=== PATIENT | female | born 1960 | race Caucasian/White ===

== ENCOUNTER 2016-10-17 11:44 | Inpatient (IN) | payer MEDICAID ==
[~2016-10-17] VITALS: Ht 167.6 cm; Wt 112.3 kg
[~2016-10-17 11:44] MED LIST: BACITRACIN OINT TOPICAL ONE; FENTANYL 100 MCG/2 ML AMP IV ONE; GLYCOPYRROLATE 0.2 MG/ML VIAL IV ONE; LIDOCAINE 2% SYR 5 ML IV ONE; NEOSTIGMINE 10 MG/10 ML VIAL IV ONE; PROPOFOL 20 ML PER ML IV ONE; ROCURONIUM 50 MG VIAL IV ONE
[2016-10-17] MEDS ORDERED: DILAUDID 1 MG/ML AMP ONE ×2 (12:23→15:17)
[2016-10-17] MEDS ORDERED: BISACODYL EC 5 MG TAB PO PRN (17:25)
[2016-10-17] MEDS ORDERED: SALINE FLUSH 10 ML FLUSH PRN (17:25)
[2016-10-17] MEDS ORDERED: BISACODYL 10 MG SUPP RECTAL PRN (17:25)
[2016-10-17] MEDS ORDERED: ONDANSETRON 4 MG VIAL IV PRN (17:25)
[2016-10-17] MEDS ORDERED: MAG HYDROX 30 ML UDC PO PRN (17:25)
[2016-10-17] MEDS ORDERED: ALU/MAG/SIM 30 ML UDC PO PRN (17:25)
[2016-10-17 17:28] VITALS: BP_SYST 107; RESP 16; TEMP 98.1
[2016-10-17 17:43] VITALS: RESP 20
[2016-10-17 18:00] VITALS: Ht 167.6 cm; Wt 112.3 kg
[2016-10-17] MEDS: MORPHINE 2 MG/ML SYR IV PRN (18:13)
[2016-10-17 19:41] VITALS: BP_SYST 111; RESP 16; TEMP 98.2
[2016-10-17] MEDS: SALINE FLUSH 10 ML FLUSH SCH (21:12)
[2016-10-17 23:18] VITALS: BP_SYST 139; RESP 16; TEMP 98.3
[2016-10-18] MEDS: MORPHINE 2 MG/ML SYR IV PRN ×2 (01:31→08:10)
[2016-10-18 03:43] VITALS: BP_SYST 124; RESP 16; TEMP 98.3
[2016-10-18] MEDS ORDERED: SODIUM CHLORIDE 0.9% FLUSH BAG 500 ML IV SCH (06:00)
[2016-10-18 07:54] VITALS: BP_SYST 142; RESP 18; TEMP 98.4
[2016-10-18] MEDS: SALINE FLUSH 10 ML FLUSH SCH ×2 (08:11→20:43)
[2016-10-18] MEDS ORDERED: CEFAZOLIN 2,000 MG in SODIUM CHLORIDE 0.9% 100 ML IV ONE (09:15)
[2016-10-18 12:23] VITALS: BP_SYST 128; RESP 18; TEMP 99
[2016-10-18 15:38] VITALS: BP_SYST 121; RESP 20; TEMP 99.3
[2016-10-18 19:17] VITALS: BP_SYST 139; RESP 18; TEMP 99.4
[2016-10-18] MEDS ORDERED: DIVALPROEX DR 500 MG TAB PO ONE (21:20)
[2016-10-18] MEDS ORDERED: TRAZODONE 50 MG TAB PO ONE (21:20)
[2016-10-18] MEDS ORDERED: lamoTRIgine 100 MG TAB PO ONE (21:20)
[2016-10-18] MEDS ORDERED: SERTRALINE 100 MG TAB PO ONE (21:20)
[2016-10-18] MEDS ORDERED: PHENYTOIN 100 MG CAP PO ONE (21:20)
[2016-10-18 23:12] VITALS: BP_SYST 151; RESP 18; TEMP 98.6
[2016-10-19] VITALS (19 sets, daily range): BP systolic 114–159; RESP 16–20; TEMP 98–102.7
[2016-10-19] MEDS ORDERED: OXYCODONE 5 MG TAB PO PRN (07:55)
[2016-10-19] MEDS ORDERED: MORPHINE 4 MG/ML SYR IV PRN (07:55)
[2016-10-19] MEDS ORDERED: MORPHINE 2 MG/ML SYR IV PRN (07:55)
[2016-10-19] MEDS ORDERED: ONDANSETRON 4 MG VIAL IV PRN (07:55)
[2016-10-19] MEDS: SALINE FLUSH 10 ML FLUSH SCH ×2 (08:00→21:01)
[2016-10-19] MEDS: ENOXAPARIN 40 MG/0.4 ML SYR SUBQ SCH (09:00)
[2016-10-19] MEDS ORDERED: SALINE FLUSH 10 ML FLUSH PRN (09:20)
[2016-10-19] MEDS: MEPERIDINE 25 MG/ML IV PRN ×2 (09:53→10:14)
[2016-10-19] MEDS: DILAUDID 1 MG/ML AMP IV PRN ×2 (09:56→10:12)
[2016-10-19] MEDS: MORPHINE 2 MG/ML SYR IV PRN ×2 (11:19→16:04)
[2016-10-19] MEDS: DIVALPROEX DR 500 MG TAB PO SCH ×2 (12:35→21:00)
[2016-10-19] MEDS: LEVOTHYROXINE 0.05 MG TAB PO SCH (12:43)
[2016-10-19] MEDS: ONDANSETRON 4 MG VIAL IV PRN ×2 (12:51→21:00)
[2016-10-19] MEDS: SODIUM CHLORIDE 0.9% FLUSH BAG 500 ML IV SCH (12:51)
[2016-10-19] MEDS: CEFAZOLIN 2,000 MG in SODIUM CHLORIDE 0.9% 100 ML IV SCH ×2 (12:51→18:10)
[2016-10-19] MEDS: lamoTRIgine 100 MG TAB PO SCH (13:29)
[2016-10-19] MEDS: TERBUTALINE SULF 2.5 MG TAB PO SCH ×2 (16:01→21:00)
[2016-10-19] MEDS: ACETAMINOPHEN 325 MG TAB PO PRN (19:00)
[2016-10-19] MEDS: LEVOFLOXACIN 500 MG/100 ML 100 ML IV SCH (19:01)
[2016-10-19] MEDS: PRIMIDONE 50 MG TAB PO SCH (20:59)
[2016-10-19] MEDS: PHENYTOIN 100 MG CAP PO SCH (21:00)
[2016-10-19] MEDS ORDERED: DOCUSATE SOD 100 MG CAP PO SCH (21:00)
[2016-10-19] MEDS: TRAZODONE 50 MG TAB PO SCH (21:00)
[2016-10-19] MEDS: CYPROHEPTADINE 4 MG TAB PO SCH (21:00)
[2016-10-20] MEDS: CEFAZOLIN 2,000 MG in SODIUM CHLORIDE 0.9% 100 ML IV SCH ×2 (00:03→06:11)
[2016-10-20 03:04] VITALS: BP_SYST 132; RESP 18; TEMP 99
[2016-10-20] MEDS: LEVOTHYROXINE 0.05 MG TAB PO SCH (06:08)
[2016-10-20] MEDS: SODIUM CHLORIDE 0.9% FLUSH BAG 500 ML IV SCH (06:11)
[2016-10-20 07:25] VITALS: BP_SYST 129; RESP 20; TEMP 99.4
[2016-10-20] MEDS: ENOXAPARIN 40 MG/0.4 ML SYR SUBQ SCH (07:53)
[2016-10-20] MEDS: CYPROHEPTADINE 4 MG TAB PO SCH ×2 (07:54→20:47)
[2016-10-20] MEDS: LEVOFLOXACIN 500 MG/100 ML 100 ML IV SCH (07:54)
[2016-10-20] MEDS: TERBUTALINE SULF 2.5 MG TAB PO SCH ×3 (07:55→20:46)
[2016-10-20] MEDS: DIVALPROEX DR 500 MG TAB PO SCH ×2 (07:55→20:46)
[2016-10-20] MEDS: DOCUSATE SOD 100 MG CAP PO SCH (07:56)
[2016-10-20] MEDS: PRIMIDONE 50 MG TAB PO SCH ×2 (07:56→20:46)
[2016-10-20] MEDS: MAG HYDROX 30 ML UDC PO SCH (07:56)
[2016-10-20] MEDS: lamoTRIgine 100 MG TAB PO SCH (07:56)
[2016-10-20] MEDS: ONDANSETRON 4 MG VIAL IV PRN (07:57)
[2016-10-20] MEDS: SALINE FLUSH 10 ML FLUSH SCH ×2 (07:58→20:47)
[2016-10-20 11:57] VITALS: BP_SYST 138; RESP 18; TEMP 99.6
[2016-10-20 15:03] VITALS: BP_SYST 134; RESP 20; TEMP 99.6
[2016-10-20 19:33] VITALS: BP_SYST 118; RESP 18; TEMP 99.4
[2016-10-20] MEDS: PHENYTOIN 100 MG CAP PO SCH (20:46)
[2016-10-20] MEDS: TRAZODONE 50 MG TAB PO SCH (20:47)
[2016-10-20] MEDS: MORPHINE 2 MG/ML SYR IV PRN (20:47)
[2016-10-20 23:17] VITALS: BP_SYST 144; RESP 18; TEMP 101.2
[2016-10-21] VITALS (10 sets, daily range): BP systolic 112–151; RESP 18; TEMP 100–102.6
[2016-10-21] MEDS: MORPHINE 2 MG/ML SYR IV PRN ×2 (02:05→21:02)
[2016-10-21] MEDS: LEVOTHYROXINE 0.05 MG TAB PO SCH (06:47)
[2016-10-21] MEDS: MAG HYDROX 30 ML UDC PO SCH (08:15)
[2016-10-21] MEDS: TERBUTALINE SULF 2.5 MG TAB PO SCH ×3 (08:16→20:02)
[2016-10-21] MEDS: CYPROHEPTADINE 4 MG TAB PO SCH ×2 (08:16→20:03)
[2016-10-21] MEDS: LEVOFLOXACIN 500 MG/100 ML 100 ML IV SCH (08:16)
[2016-10-21] MEDS: DOCUSATE SOD 100 MG CAP PO SCH ×2 (08:16→20:03)
[2016-10-21] MEDS: lamoTRIgine 100 MG TAB PO SCH (08:16)
[2016-10-21] MEDS: DIVALPROEX DR 500 MG TAB PO SCH ×2 (08:17→20:03)
[2016-10-21] MEDS: PRIMIDONE 50 MG TAB PO SCH ×2 (08:17→20:02)
[2016-10-21] MEDS: ENOXAPARIN 40 MG/0.4 ML SYR SUBQ SCH (08:17)
[2016-10-21] MEDS: SALINE FLUSH 10 ML FLUSH SCH ×2 (08:18→20:04)
[2016-10-21] MEDS: ACETAMINOPHEN 325 MG TAB PO PRN ×2 (08:26→20:03)
[2016-10-21] MEDS ORDERED: PHARMACY TO DOSE ZOSYN IV SCH (11:30)
[2016-10-21] MEDS ORDERED: PHARMACY TO DOSE VANCOMYCIN IV SCH (11:30)
[2016-10-21] MEDS ORDERED: BISACODYL 10 MG SUPP RECTAL ONE (11:55)
[2016-10-21] MEDS: PIPERACIL/TAZO 3.375GM/50ML 50 ML IV SCH ×3 (12:24→23:00)
[2016-10-21] MEDS: VANCOMYCIN 1,500 MG in SODIUM CHLORIDE 0.9% 250 ML IV SCH (13:34)
[2016-10-21] MEDS: POLYETHYLENE GLYCOL 17 GM PACKET PO SCH (20:01)
[2016-10-21] MEDS: PHENYTOIN 100 MG CAP PO SCH (20:02)
[2016-10-21] MEDS: OXYCODONE 5 MG TAB PO PRN ×2 (20:02→23:55)
[2016-10-21] MEDS: TRAZODONE 50 MG TAB PO SCH (20:03)
[2016-10-21] MEDS: ONDANSETRON 4 MG VIAL IV PRN (22:11)
[2016-10-22] VITALS (7 sets, daily range): BP systolic 117–137; RESP 18–20; TEMP 98.8–102.8
[2016-10-22] MEDS ORDERED: PROMETHAZINE 12.5 MG TAB PO PRN (00:20)
[2016-10-22] MEDS: VANCOMYCIN 1,500 MG in SODIUM CHLORIDE 0.9% 250 ML IV SCH ×2 (00:20→13:26)
[2016-10-22] MEDS: ACETAMINOPHEN 325 MG TAB PO PRN ×3 (02:45→17:44)
[2016-10-22] MEDS: PROMETHAZINE 25 MG/ML VIAL IM/IV PRN (02:45)
[2016-10-22] MEDS: OXYCODONE 5 MG TAB PO PRN (03:30)
[2016-10-22] MEDS: PIPERACIL/TAZO 3.375GM/50ML 50 ML IV SCH ×4 (05:30→23:24)
[2016-10-22] MEDS: MORPHINE 2 MG/ML SYR IV PRN (06:15)
[2016-10-22] MEDS: LEVOTHYROXINE 0.05 MG TAB PO SCH (06:25)
[2016-10-22] MEDS: ONDANSETRON 4 MG VIAL IV PRN (07:54)
[2016-10-22] MEDS: SODIUM CHLORIDE 0.9% FLUSH BAG 500 ML IV SCH (07:59)
[2016-10-22] MEDS: SALINE FLUSH 10 ML FLUSH SCH ×2 (08:20→19:18)
[2016-10-22] MEDS: DIVALPROEX DR 500 MG TAB PO SCH ×2 (08:22→20:19)
[2016-10-22] MEDS: DOCUSATE SOD 100 MG CAP PO SCH ×2 (08:22→20:14)
[2016-10-22] MEDS: TERBUTALINE SULF 2.5 MG TAB PO SCH ×3 (08:22→20:15)
[2016-10-22] MEDS: CYPROHEPTADINE 4 MG TAB PO SCH ×2 (08:23→20:14)
[2016-10-22] MEDS: PRIMIDONE 50 MG TAB PO SCH ×2 (08:23→20:14)
[2016-10-22] MEDS: lamoTRIgine 100 MG TAB PO SCH (08:23)
[2016-10-22] MEDS: MAG HYDROX 30 ML UDC PO SCH (08:26)
[2016-10-22] MEDS: ENOXAPARIN 40 MG/0.4 ML SYR SUBQ SCH (08:26)
[2016-10-22] MEDS: NEB-ATROVENT INH SCH ×2 (14:20→18:12)
[2016-10-22] MEDS ORDERED: NEB-XOPENEX 0.63 MG/3 ML INH PRN (14:20)
[2016-10-22] MEDS ORDERED: MISSING DOSE XX ONE (14:20)
[2016-10-22] MEDS: AZITHROMYCIN 500 MG in SODIUM CHLORIDE 0.9% 250 ML IV SCH (14:30)
[2016-10-22] MEDS: GUAIFENESIN ER 600 MG TABCR PO SCH ×2 (14:30→20:19)
[2016-10-22] MEDS: SODIUM CHLORIDE 0.9% 1,000 ML IV SCH (14:30)
[2016-10-22] MEDS: POLYETHYLENE GLYCOL 17 GM PACKET PO SCH (20:12)
[2016-10-22] MEDS: PHENYTOIN 100 MG CAP PO SCH (20:13)
[2016-10-22] MEDS: TRAZODONE 50 MG TAB PO SCH (20:18)
[2016-10-23] VITALS (7 sets, daily range): BP systolic 124–147; RESP 16–18; TEMP 98.5–101.1
[2016-10-23] MEDS: VANCOMYCIN 1,500 MG in SODIUM CHLORIDE 0.9% 250 ML IV SCH ×3 (00:52→21:10)
[2016-10-23] MEDS: ACETAMINOPHEN 325 MG TAB PO PRN (03:02)
[2016-10-23] MEDS: SODIUM CHLORIDE 0.9% FLUSH BAG 500 ML IV SCH (05:07)
[2016-10-23] MEDS: PIPERACIL/TAZO 3.375GM/50ML 50 ML IV SCH ×4 (05:53→23:57)
[2016-10-23] MEDS: SODIUM CHLORIDE 0.9% 1,000 ML IV SCH ×2 (05:58→21:10)
[2016-10-23] MEDS: LEVOTHYROXINE 0.05 MG TAB PO SCH (06:03)
[2016-10-23] MEDS: NEB-ATROVENT INH SCH ×3 (07:16→20:23)
[2016-10-23] MEDS: SALINE FLUSH 10 ML FLUSH SCH ×2 (07:30→19:22)
[2016-10-23] MEDS: AZITHROMYCIN 500 MG in SODIUM CHLORIDE 0.9% 250 ML IV SCH (08:06)
[2016-10-23] MEDS: DOCUSATE SOD 100 MG CAP PO SCH ×2 (08:07→21:15)
[2016-10-23] MEDS: ENOXAPARIN 40 MG/0.4 ML SYR SUBQ SCH (08:07)
[2016-10-23] MEDS: CYPROHEPTADINE 4 MG TAB PO SCH ×2 (08:08→21:12)
[2016-10-23] MEDS: PRIMIDONE 50 MG TAB PO SCH ×2 (08:08→21:13)
[2016-10-23] MEDS: DIVALPROEX DR 500 MG TAB PO SCH ×2 (08:08→21:14)
[2016-10-23] MEDS: GUAIFENESIN ER 600 MG TABCR PO SCH ×2 (08:09→21:11)
[2016-10-23] MEDS: TERBUTALINE SULF 2.5 MG TAB PO SCH ×3 (08:09→21:15)
[2016-10-23] MEDS: lamoTRIgine 100 MG TAB PO SCH (08:09)
[2016-10-23] MEDS: MAG HYDROX 30 ML UDC PO SCH (08:11)
[2016-10-23] MEDS: ONDANSETRON 4 MG VIAL IV PRN (16:32)
[2016-10-23] MEDS: METRONIDAZOLE 500 MG TAB PO SCH ×2 (16:59→21:15)
[2016-10-23] MEDS: POLYETHYLENE GLYCOL 17 GM PACKET PO SCH (21:00)
[2016-10-23] MEDS: PHENYTOIN 100 MG CAP PO SCH (21:11)
[2016-10-23] MEDS: TRAZODONE 50 MG TAB PO SCH (21:15)
[2016-10-24 02:30] VITALS: BP_SYST 118; RESP 16; TEMP 99
[2016-10-24] MEDS: VANCOMYCIN 1,500 MG in SODIUM CHLORIDE 0.9% 250 ML IV SCH (04:53)
[2016-10-24] MEDS: SODIUM CHLORIDE 0.9% FLUSH BAG 500 ML IV SCH (05:45)
[2016-10-24] MEDS: LEVOTHYROXINE 0.05 MG TAB PO SCH (06:38)
[2016-10-24] MEDS: PIPERACIL/TAZO 3.375GM/50ML 50 ML IV SCH ×4 (06:39→23:57)
[2016-10-24] MEDS: NEB-ATROVENT INH SCH ×3 (07:02→19:47)
[2016-10-24] MEDS ORDERED: MISSING DOSE XX ONE (07:25)
[2016-10-24] MEDS: PROMETHAZINE 25 MG/ML VIAL IM/IV PRN (07:53)
[2016-10-24 08:30] VITALS: BP_SYST 156; RESP 22; TEMP 98
[2016-10-24] MEDS: AZITHROMYCIN 500 MG in SODIUM CHLORIDE 0.9% 250 ML IV SCH (08:54)
[2016-10-24] MEDS: PRIMIDONE 50 MG TAB PO SCH ×2 (08:55→21:27)
[2016-10-24] MEDS: METRONIDAZOLE 500 MG TAB PO SCH ×3 (08:55→21:26)
[2016-10-24] MEDS: ENOXAPARIN 40 MG/0.4 ML SYR SUBQ SCH (08:55)
[2016-10-24] MEDS: lamoTRIgine 100 MG TAB PO SCH (08:55)
[2016-10-24] MEDS: CYPROHEPTADINE 4 MG TAB PO SCH ×2 (08:56→21:26)
[2016-10-24] MEDS: TERBUTALINE SULF 2.5 MG TAB PO SCH ×3 (08:56→21:25)
[2016-10-24] MEDS: GUAIFENESIN ER 600 MG TABCR PO SCH ×2 (08:56→21:26)
[2016-10-24] MEDS: DIVALPROEX DR 500 MG TAB PO SCH ×2 (08:56→21:26)
[2016-10-24] MEDS: SALINE FLUSH 10 ML FLUSH SCH ×2 (08:57→21:27)
[2016-10-24] MEDS: MAG HYDROX 30 ML UDC PO SCH (09:00)
[2016-10-24] MEDS: DOCUSATE SOD 100 MG CAP PO SCH ×2 (09:00→21:25)
[2016-10-24] MEDS ORDERED: Furosemide 100 MG/10 ML VIAL IV ONE (10:40)
[2016-10-24 13:30] VITALS: BP_SYST 120; RESP 20; TEMP 98.7
[2016-10-24 16:42] VITALS: RESP 20; TEMP 100.1
[2016-10-24 19:00] VITALS: BP_SYST 132; RESP 20; TEMP 98.6
[2016-10-24] MEDS: TRAZODONE 50 MG TAB PO SCH (21:25)
[2016-10-24] MEDS: PHENYTOIN 100 MG CAP PO SCH (21:25)
[2016-10-24] MEDS: POLYETHYLENE GLYCOL 17 GM PACKET PO SCH (21:27)
[2016-10-24 23:30] VITALS: BP_SYST 122; RESP 20; TEMP 97.8
[2016-10-25 03:34] VITALS: BP_SYST 132; RESP 18; TEMP 97.3
[2016-10-25] MEDS: PIPERACIL/TAZO 3.375GM/50ML 50 ML IV SCH ×4 (06:21→23:43)
[2016-10-25] MEDS: SODIUM CHLORIDE 0.9% FLUSH BAG 500 ML IV SCH (06:21)
[2016-10-25] MEDS: LEVOTHYROXINE 0.05 MG TAB PO SCH (06:22)
[2016-10-25] MEDS: NEB-ATROVENT INH SCH ×3 (06:53→18:44)
[2016-10-25 08:01] VITALS: BP_SYST 118; RESP 18; TEMP 99.5
[2016-10-25] MEDS: MAG HYDROX 30 ML UDC PO SCH (09:00)
[2016-10-25] MEDS ORDERED: Furosemide 40 MG/4 ML VIAL IV SCH (09:00)
[2016-10-25] MEDS: DIVALPROEX DR 500 MG TAB PO SCH ×2 (09:11→21:15)
[2016-10-25] MEDS: CYPROHEPTADINE 4 MG TAB PO SCH ×2 (09:11→21:14)
[2016-10-25] MEDS: DOCUSATE SOD 100 MG CAP PO SCH ×2 (09:11→21:15)
[2016-10-25] MEDS: TERBUTALINE SULF 2.5 MG TAB PO SCH ×3 (09:11→21:13)
[2016-10-25] MEDS: SALINE FLUSH 10 ML FLUSH SCH ×2 (09:11→21:13)
[2016-10-25] MEDS: lamoTRIgine 100 MG TAB PO SCH (09:11)
[2016-10-25] MEDS: METRONIDAZOLE 500 MG TAB PO SCH ×3 (09:12→21:15)
[2016-10-25] MEDS: GUAIFENESIN ER 600 MG TABCR PO SCH ×2 (09:12→21:14)
[2016-10-25] MEDS: PRIMIDONE 50 MG TAB PO SCH ×2 (09:12→21:14)
[2016-10-25] MEDS: ENOXAPARIN 40 MG/0.4 ML SYR SUBQ SCH (09:14)
[2016-10-25] MEDS: AZITHROMYCIN 500 MG in SODIUM CHLORIDE 0.9% 250 ML IV SCH (09:14)
[2016-10-25 11:58] VITALS: BP_SYST 122; RESP 20; TEMP 99.6
[2016-10-25] MEDS: KCL CR 10 MEQ CAP PO SCH (12:33)
[2016-10-25 16:44] VITALS: RESP 18; TEMP 100.2
[2016-10-25] MEDS: Furosemide 40 MG/4 ML VIAL IV SCH (17:02)
[2016-10-25 19:00] VITALS: BP_SYST 122; RESP 22; TEMP 100.3
[2016-10-25] MEDS: TRAZODONE 50 MG TAB PO SCH (21:13)
[2016-10-25] MEDS: PHENYTOIN 100 MG CAP PO SCH (21:15)
[2016-10-25] MEDS: POLYETHYLENE GLYCOL 17 GM PACKET PO SCH (21:15)
[2016-10-25 23:25] VITALS: BP_SYST 132; RESP 18; TEMP 100.7
[2016-10-26 03:46] VITALS: BP_SYST 128; RESP 18; TEMP 97.7
[2016-10-26] MEDS: NEB-ATROVENT INH SCH ×3 (06:41→19:20)
[2016-10-26] MEDS: SODIUM CHLORIDE 0.9% FLUSH BAG 500 ML IV SCH (06:42)
[2016-10-26] MEDS: LEVOTHYROXINE 0.05 MG TAB PO SCH (06:42)
[2016-10-26] MEDS: PIPERACIL/TAZO 3.375GM/50ML 50 ML IV SCH ×3 (06:42→17:28)
[2016-10-26 07:51] VITALS: BP_SYST 128; RESP 18; TEMP 98.7
[2016-10-26] MEDS ORDERED: MISSING DOSE XX ONE (08:45)
[2016-10-26] MEDS: SALINE FLUSH 10 ML FLUSH SCH ×2 (09:24→20:53)
[2016-10-26] MEDS: Furosemide 40 MG/4 ML VIAL IV SCH ×2 (09:24→16:26)
[2016-10-26] MEDS: ENOXAPARIN 40 MG/0.4 ML SYR SUBQ SCH (09:25)
[2016-10-26] MEDS: MAG HYDROX 30 ML UDC PO SCH (09:25)
[2016-10-26] MEDS: DIVALPROEX DR 500 MG TAB PO SCH ×2 (09:26→20:51)
[2016-10-26] MEDS: KCL CR 10 MEQ CAP PO SCH (09:26)
[2016-10-26] MEDS: METRONIDAZOLE 500 MG TAB PO SCH ×3 (09:26→20:52)
[2016-10-26] MEDS: TERBUTALINE SULF 2.5 MG TAB PO SCH ×3 (09:26→20:53)
[2016-10-26] MEDS: lamoTRIgine 100 MG TAB PO SCH (09:26)
[2016-10-26] MEDS: CYPROHEPTADINE 4 MG TAB PO SCH ×2 (09:26→20:53)
[2016-10-26] MEDS: DOCUSATE SOD 100 MG CAP PO SCH ×2 (09:26→20:45)
[2016-10-26] MEDS: PRIMIDONE 50 MG TAB PO SCH ×2 (09:27→20:52)
[2016-10-26] MEDS: GUAIFENESIN ER 600 MG TABCR PO SCH ×2 (09:27→20:52)
[2016-10-26 11:50] VITALS: BP_SYST 126; RESP 20; TEMP 98
[2016-10-26 17:09] VITALS: BP_SYST 126; RESP 18; TEMP 98.6
[2016-10-26 19:56] VITALS: BP_SYST 126; RESP 18; TEMP 98.8
[2016-10-26] MEDS: POLYETHYLENE GLYCOL 17 GM PACKET PO SCH (20:45)
[2016-10-26] MEDS: PHENYTOIN 100 MG CAP PO SCH (20:52)
[2016-10-26] MEDS: TRAZODONE 50 MG TAB PO SCH (20:53)
[2016-10-27 00:46] VITALS: BP_SYST 130; RESP 18; TEMP 99.3
[2016-10-27] MEDS: PIPERACIL/TAZO 3.375GM/50ML 50 ML IV SCH ×4 (00:56→18:02)
[2016-10-27 04:52] VITALS: BP_SYST 124; RESP 18; TEMP 98.2
[2016-10-27] MEDS: SODIUM CHLORIDE 0.9% FLUSH BAG 500 ML IV SCH (05:58)
[2016-10-27] MEDS: LEVOTHYROXINE 0.05 MG TAB PO SCH (05:59)
[2016-10-27] MEDS: NEB-ATROVENT INH SCH ×3 (06:59→18:20)
[2016-10-27 07:42] VITALS: BP_SYST 128; RESP 18; TEMP 98.5
[2016-10-27] MEDS: Furosemide 40 MG/4 ML VIAL IV SCH ×2 (08:35→16:44)
[2016-10-27] MEDS: CYPROHEPTADINE 4 MG TAB PO SCH ×2 (08:35→21:18)
[2016-10-27] MEDS: lamoTRIgine 100 MG TAB PO SCH (08:35)
[2016-10-27] MEDS: SALINE FLUSH 10 ML FLUSH SCH ×2 (08:35→21:15)
[2016-10-27] MEDS: METRONIDAZOLE 500 MG TAB PO SCH ×3 (08:35→21:16)
[2016-10-27] MEDS: TERBUTALINE SULF 2.5 MG TAB PO SCH ×3 (08:35→21:17)
[2016-10-27] MEDS: DIVALPROEX DR 500 MG TAB PO SCH ×2 (08:35→21:17)
[2016-10-27] MEDS: GUAIFENESIN ER 600 MG TABCR PO SCH ×2 (08:36→21:17)
[2016-10-27] MEDS: PRIMIDONE 50 MG TAB PO SCH ×2 (08:36→21:17)
[2016-10-27] MEDS: KCL CR 10 MEQ CAP PO SCH (08:37)
[2016-10-27] MEDS: ENOXAPARIN 40 MG/0.4 ML SYR SUBQ SCH (08:37)
[2016-10-27] MEDS: MAG HYDROX 30 ML UDC PO SCH (09:00)
[2016-10-27] MEDS: DOCUSATE SOD 100 MG CAP PO SCH ×2 (09:00→20:45)
[2016-10-27 11:43] VITALS: BP_SYST 110; RESP 18; TEMP 98.5
[2016-10-27 14:55] VITALS: BP_SYST 120; RESP 18; TEMP 98.7
[2016-10-27 20:17] VITALS: BP_SYST 122; RESP 18; TEMP 97.9
[2016-10-27] MEDS: POLYETHYLENE GLYCOL 17 GM PACKET PO SCH (20:45)
[2016-10-27] MEDS: ONDANSETRON 4 MG VIAL IV PRN (21:16)
[2016-10-27] MEDS: PHENYTOIN 100 MG CAP PO SCH (21:18)
[2016-10-27] MEDS: TRAZODONE 50 MG TAB PO SCH (21:18)
[2016-10-28] MEDS: PIPERACIL/TAZO 3.375GM/50ML 50 ML IV SCH ×2 (00:12→06:38)
[2016-10-28 00:14] VITALS: BP_SYST 118; RESP 18; TEMP 98.3
[2016-10-28] MEDS: LEVOTHYROXINE 0.05 MG TAB PO SCH (06:38)
[2016-10-28] MEDS: SODIUM CHLORIDE 0.9% FLUSH BAG 500 ML IV SCH (06:38)
[2016-10-28] MEDS: DOCUSATE SOD 100 MG CAP PO SCH ×2 (07:56→20:55)
[2016-10-28] MEDS: NEB-ATROVENT INH SCH ×3 (07:58→19:40)
[2016-10-28] MEDS: MAG HYDROX 30 ML UDC PO SCH (08:01)
[2016-10-28] MEDS: Furosemide 40 MG/4 ML VIAL IV SCH ×2 (08:12→16:40)
[2016-10-28] MEDS: ENOXAPARIN 40 MG/0.4 ML SYR SUBQ SCH (08:12)
[2016-10-28] MEDS: SALINE FLUSH 10 ML FLUSH SCH ×2 (08:12→21:10)
[2016-10-28] MEDS: GUAIFENESIN ER 600 MG TABCR PO SCH ×2 (08:13→21:09)
[2016-10-28] MEDS: METRONIDAZOLE 500 MG TAB PO SCH ×3 (08:14→21:10)
[2016-10-28] MEDS: CYPROHEPTADINE 4 MG TAB PO SCH ×2 (08:14→21:10)
[2016-10-28] MEDS: lamoTRIgine 100 MG TAB PO SCH (08:14)
[2016-10-28] MEDS: KCL CR 10 MEQ CAP PO SCH (08:14)
[2016-10-28] MEDS: TERBUTALINE SULF 2.5 MG TAB PO SCH ×3 (08:14→21:10)
[2016-10-28] MEDS: DIVALPROEX DR 500 MG TAB PO SCH ×2 (08:14→21:10)
[2016-10-28] MEDS: PRIMIDONE 50 MG TAB PO SCH ×2 (08:15→21:10)
[2016-10-28 08:20] VITALS: BP_SYST 122; RESP 18; TEMP 98.6
[2016-10-28 11:12] VITALS: BP_SYST 138; RESP 18; TEMP 98.4
[2016-10-28 16:21] VITALS: BP_SYST 136; RESP 18; TEMP 98.8
[2016-10-28 20:00] VITALS: BP_SYST 122; RESP 18; TEMP 99.5
[2016-10-28] MEDS: POLYETHYLENE GLYCOL 17 GM PACKET PO SCH (20:55)
[2016-10-28] MEDS: PHENYTOIN 100 MG CAP PO SCH (21:09)
[2016-10-28] MEDS: TRAZODONE 50 MG TAB PO SCH (21:10)
[2016-10-28 23:47] VITALS: BP_SYST 126; RESP 16; TEMP 99.2
[2016-10-28] MEDS: OXYCODONE 5 MG TAB PO PRN (23:55)
[2016-10-29 03:30] VITALS: BP_SYST 114; RESP 18; TEMP 98.6
[2016-10-29] MEDS: SODIUM CHLORIDE 0.9% FLUSH BAG 500 ML IV SCH (05:12)
[2016-10-29] MEDS: LEVOTHYROXINE 0.05 MG TAB PO SCH (06:27)
[2016-10-29] MEDS: NEB-ATROVENT INH SCH ×3 (06:47→18:46)
[2016-10-29 07:55] VITALS: BP_SYST 118; RESP 18; TEMP 98.5
[2016-10-29] MEDS: DOCUSATE SOD 100 MG CAP PO SCH ×2 (08:47→20:10)
[2016-10-29] MEDS ORDERED: MISSING DOSE XX ONE (08:55)
[2016-10-29] MEDS: KCL CR 10 MEQ CAP PO SCH (09:00)
[2016-10-29] MEDS: SALINE FLUSH 10 ML FLUSH SCH ×2 (09:00→20:07)
[2016-10-29] MEDS: MAG HYDROX 30 ML UDC PO SCH (09:00)
[2016-10-29] MEDS: ENOXAPARIN 40 MG/0.4 ML SYR SUBQ SCH (09:01)
[2016-10-29] MEDS: PRIMIDONE 50 MG TAB PO SCH ×2 (09:01→20:08)
[2016-10-29] MEDS: TERBUTALINE SULF 2.5 MG TAB PO SCH ×3 (09:01→20:09)
[2016-10-29] MEDS: Furosemide 40 MG TAB PO SCH (09:02)
[2016-10-29] MEDS: DIVALPROEX DR 500 MG TAB PO SCH ×2 (09:02→20:09)
[2016-10-29] MEDS: lamoTRIgine 100 MG TAB PO SCH (09:02)
[2016-10-29] MEDS: GUAIFENESIN ER 600 MG TABCR PO SCH ×2 (09:03→20:09)
[2016-10-29] MEDS: METRONIDAZOLE 500 MG TAB PO SCH ×3 (09:28→20:09)
[2016-10-29] MEDS: CYPROHEPTADINE 4 MG TAB PO SCH ×2 (09:29→20:09)
[2016-10-29] MEDS: OXYCODONE 5 MG TAB PO PRN (09:29)
[2016-10-29 11:33] VITALS: BP_SYST 110; RESP 18; TEMP 98.6
[2016-10-29 15:44] VITALS: BP_SYST 114; RESP 18; TEMP 98.8
[2016-10-29] MEDS: TRAZODONE 50 MG TAB PO SCH (20:09)
[2016-10-29] MEDS: PHENYTOIN 100 MG CAP PO SCH (20:09)
[2016-10-29] MEDS: POLYETHYLENE GLYCOL 17 GM PACKET PO SCH (20:10)
[2016-10-29 20:21] VITALS: BP_SYST 140; RESP 20; TEMP 99.1
[2016-10-29 23:58] VITALS: BP_SYST 130; RESP 20; TEMP 98.9
[2016-10-30] VITALS (7 sets, daily range): BP systolic 118–138; RESP 16–18; TEMP 98.5–98.9
[2016-10-30] MEDS: SODIUM CHLORIDE 0.9% FLUSH BAG 500 ML IV SCH (04:57)
[2016-10-30] MEDS: LEVOTHYROXINE 0.05 MG TAB PO SCH (06:19)
[2016-10-30] MEDS: NEB-ATROVENT INH SCH ×3 (06:38→18:26)
[2016-10-30] MEDS: MAG HYDROX 30 ML UDC PO SCH (09:00)
[2016-10-30] MEDS: DOCUSATE SOD 100 MG CAP PO SCH (09:00)
[2016-10-30] MEDS: DIVALPROEX DR 500 MG TAB PO SCH (09:11)
[2016-10-30] MEDS: METRONIDAZOLE 500 MG TAB PO SCH (09:12)
[2016-10-30] MEDS: Furosemide 40 MG TAB PO SCH (09:12)
[2016-10-30] MEDS: lamoTRIgine 100 MG TAB PO SCH (09:12)
[2016-10-30] MEDS: CYPROHEPTADINE 4 MG TAB PO SCH (09:12)
[2016-10-30] MEDS: TERBUTALINE SULF 2.5 MG TAB PO SCH ×2 (09:12→16:54)
[2016-10-30] MEDS: GUAIFENESIN ER 600 MG TABCR PO SCH (09:12)
[2016-10-30] MEDS: PRIMIDONE 50 MG TAB PO SCH (09:12)
[2016-10-30] MEDS: KCL CR 10 MEQ CAP PO SCH (09:12)
[2016-10-30] MEDS: ENOXAPARIN 40 MG/0.4 ML SYR SUBQ SCH (09:13)
[2016-10-30] MEDS: SALINE FLUSH 10 ML FLUSH SCH (09:13)
== END 2016-10-30 19:53 | DRG 494 ==
LOC: ENRESERVTM → ENRESERVDT → ER 11:44 → ENPENDDIS 15:24 → EMR 15:24 → 2NO 16:49 → PCU 10-24 13:42 → EMR 10-24 20:08
PROVIDERS: ADMIT Hospitalist; ATTEND Hospitalist
PROC: 0QSK04Z Reposition Left Fibula with Internal Fixation Device, Open Approach (ICD-10-PCS; principal; 2016-10-19 07:20)
DX: S82.52XA Displaced fracture of medial malleolus of left tibia, initial encounter for closed fracture (principal); I10 Essential (primary) hypertension; W19.XXXA Unspecified fall, initial encounter; E78.00 Pure hypercholesterolemia, unspecified; E03.9 Hypothyroidism, unspecified; G40.909 Epilepsy, unspecified, not intractable, without status epilepticus; J44.9 Chronic obstructive pulmonary disease, unspecified; J45.909 Unspecified asthma, uncomplicated; H54.42 Blindness, left eye, normal vision right eye; K21.9 Gastro-esophageal reflux disease without esophagitis; G25.0 Essential tremor; F79 Unspecified intellectual disabilities
CPT/HCPCS: 36600; 71010; 76000; 80048; 80053; 80185; 80202; 81001; 82803; 83735; 83880; 84484; 85025; 85610; 85730; 87040; 87088; 87493; 93005; 93306; 94640; 94762; 96374; 96376; 99222; 99232; 99233; 99239